=== PATIENT | female | born 1985 | race Caucasian/White ===

== ENCOUNTER 2019-08-21 16:56 | Emergency (ER) | payer OTHER ==
[2019-08-21 17:42] VITALS: BP 191/98
--- NOTE | 2019-08-21 18:56 | UC ---
Hand/Wrist HPI - HPI Summary HPI Summary: 34 yo woman with recent recognition of hypertensio, who awoke yesterday with brusing in the eweb space between her first and second digits of her right hand. This is tender and limiting her ability to work. No recall of trauma, but does do a lot of lifting and carrying. No other bruising or bleeding and area is not increasing in size. No analgesics used. Does not take aspirin. - History Of Current Complaint Chief Complaint: UCUpperExtremity Stated Complaint: RIGHT HAND SWELLING/BRUISING Time Seen by Provider: 08/21/19 18:47 Hx Obtained From: Patient Hx Last Menstrual Period: 07/23/19 Onset/Duration: Sudden Onset, Lasting Days - 2 Severity Initially: Moderate Severity Currently: Moderate Pain Intensity: 5 Character Of Pain: Aching Aggravating Factor(s): Movement, Lifting Alleviating Factor(s): Rest Associated Signs And Symptoms: Positive: Swelling, Bruising Related History: Dominant Hand Right - Risk Factors Compartment Syndrome Risk Factors: Pain - Allergies/Home Medications Allergies/Adverse Reactions: Allergies Allergy/AdvReac Type Severity Reaction Status Date / Time latex Allergy Hives Verified 08/21/19 17:43 medroxyprogesterone Allergy Hives Verified 08/21/19 17:42 [From Depo-Provera] nitrofurantoin Allergy Hallucinati Verified 08/21/19 17:43 [From Macrobid] ons pseudoephedrine Allergy Difficulty Verified 08/21/19 17:43 [From Sudafed] Breathing Home Medications: Home Medications Buspirone HCl 7.5 mg PO BID 08/21/19 [History Confirmed 08/21/19] Ferrous Gluconate [Iron 27] 240 mg PO DAILY 08/21/19 [History Confirmed 08/21/19 ] Sertraline HCl [Zoloft] 100 mg PO DAILY 08/21/19 [History Confirmed 08/21/19] PMH/Surg Hx/FS Hx/Imm Hx Previously Healthy: Yes Cardiovascular History: Hypertension - being evaluated by PMD, not yet on meds Psychological History: Anxiety, Depression - Surgical History Surgical History: None - Family History Known Family History: Positive: Cardiac Disease - mother of UT before age 50, both brother and sister have had UT's - Social History Occupation: Employed Full-time Lives: With Family Alcohol Use: Occasionally Substance Use Type: Marijuana Smoking Status (MU): Light Every Day Tobacco Smoker Review of Systems All Other Systems Reviewed And Are Negative: Yes Constitutional: Positive: Negative Skin: Positive: Bruising Eyes: Positive: Negative Cardiovascular: Positive: Other - elevated blood pressure Gastrointestinal: Positive: Negative Genitourinary: Positive: Negative Motor: Positive: Decreased ROM - at wrist due to pain Musculoskeletal: Positive: Other: - hand pain Neurological/Mental Status: Positive: Negative Psychological: Positive: Negative Is Patient Immunocompromised?: No Physical Exam Triage Information Reviewed: Yes Appearance: Well-Appearing, Pain Distress - mild to moderate Vital Signs: Initial Vital Signs Temp 98.9 F 08/21/19 17:37 Pulse 61 08/21/19 17:37 Resp 16 08/21/19 17:37 BP 191/98 08/21/19 17:37 Pulse Ox 100 08/21/19 17:37 Eye Exam: Normal ENT: Positive: Pharynx normal Neck: Positive: Supple, Nontender, No Lymphadenopathy Respiratory: Positive: Lungs clear, Normal breath sounds Cardiovascular: Positive: RRR, No Murmur Musculoskeletal: Positive: ROM Intact - at wrist, first HALF-WAY joint, MCP joints. Forming ecchymosis in web space second to third digits, with small hematoma palpable about 2 cm Neurological Exam: Normal Psychological Exam: Other - anxious Skin Exam: Other - bruising over 4 cm area in web space right hand. Hand/Wrist Course/Dx - Course Course Of Treatment: Off work due to pain. follow up if not resolving or if additional bruising is apparent. Aware of need for BP follow up. - Differential Dx/Diagnosis Differential Diagnosis/HQI/PQRI: Contusion, Infection, Strain, Other - hematoma Provider Diagnosis: Contusion of right hand Discharge ED - Sign-Out/Discharge Documenting (check all that apply): Patient Departure All imaging exams completed and their final reports reviewed: No Studies - Discharge Plan Condition: Stable Disposition: HOME Patient Education Materials: Contusion in Adults (ED) Forms: *Work Release Referrals: Benjamín Ortega MD [Primary Care Provider] - Additional Instructions: You have bruising in the right hand without a recall of trauma. It could have occurred from heavy lifting and carrying. Off work due to pain and inability to do your job. follow up blood pressure with Dr. Ortega as arranged. - Billing Disposition and Condition Condition: STABLE Disposition: Home
== END 2019-08-21 19:13 | disposition home or self-care (01) ==
LOC: UCCORT 16:56
DX: S60.221A Contusion of right hand, initial encounter (principal); I10 Essential (primary) hypertension; F17.290 Nicotine dependence, other tobacco product, uncomplicated; F32.9 Major depressive disorder, single episode, unspecified; F41.9 Anxiety disorder, unspecified; Z91.040 Latex allergy status; Z88.8 Allergy status to other drugs, medicaments and biological substances; Z88.1 Allergy status to other antibiotic agents; Z79.899 Other long term (current) drug therapy; X58.XXXA Exposure to other specified factors, initial encounter; Y92.9 Unspecified place or not applicable
CPT/HCPCS: 99211; G0463